=== PATIENT | male | born 1990 | race Caucasian/White ===

== ENCOUNTER 2018-12-26 15:41 | Emergency (ER) | payer SELFPAY ==
--- NOTE | 2018-12-26 16:18 | EDM.PDOC ---
ED HPI GENERAL MEDICAL PROBLEM - General Chief Complaint: Genitourinary Problem Stated Complaint: PAIN IN TESTICLES Time Seen by Provider: 12/26/18 16:16 Source of Information: Reports: Patient History Limitations: Reports: No Limitations - History of Present Illness INITIAL COMMENTS - FREE TEXT/NARRATIVE: HISTORY AND PHYSICAL: History of present illness: Patient is a 28-year-old male presents to the ED with complaint of left testicular pain. He states for the past 2 days he has had a dull ache in the testicle and noticed a small pea-sized nodule. He denies abdominal pain, dysuria , penile discharge, testicular swelling. He also notes having a cough and sinus congestion x 2 weeks. Denies fevers, chills, nausea, vomiting, diarrhea. Review of systems: As per history of present illness and below otherwise all systems reviewed and negative. Past medical history: As per history of present illness and as reviewed below otherwise noncontributory. Surgical history: As per history of present illness and as reviewed below otherwise noncontributory. Social history: No reported history of drug or alcohol abuse. Family history: As per history of present illness and as reviewed below otherwise noncontributory. Physical exam: General: Patient sitting comfortably in no acute distress and nontoxic appearing HEENT: Bilateral maxillary sinus tenderness to palpation. Atraumatic, normocephalic, pupils reactive, negative for conjunctival pallor or scleral icterus, mucous membranes moist, throat clear, neck supple, nontender, trachea midline. No meningeal signs. Lungs: Clear to auscultation, breath sounds equal bilaterally, chest nontender. Heart: S1S2, regular, negative for clicks, rubs, or overt murmur. Abdomen: Soft, nondistended, nontender. Negative for masses or hepatosplenomegaly. Negative for costovertebral tenderness. No rigidity, rebound , guarding. Pelvis: Stable nontender. Genitourinary: There is small pea sized nodule felt within the epididymis of the left testicle. No erythema or swelling. Normal cremasteric reflex. Rectal: Deferred. Extremities: Atraumatic, negative for cords or calf pain. Neurovascular unremarkable. Neuro: Awake, alert, oriented. Cranial nerves II through XII unremarkable. Cerebellum unremarkable. Motor and sensory unremarkable throughout. Exam nonfocal. Notes: Diagnostics: UA, urine gonorrhea/chlamydia, Scrotal US Therapeutics: Rocephin 250mg IM Prescriptions: Doxycycline 100mg BID x 10 days Impression: Acute sinusitis, Epididymal cyst Plan: Take antibiotic as instructed Follow up with urology Return to ED as needed as discussed Definitive disposition and diagnosis as appropriate pending reevaluation and review of above. Left Testicle Pain Score (Numeric/FACES): 6 - Related Data Allergies Allergy/AdvReac Type Severity Reaction Status Date / Time morphine Allergy Hives Verified 12/26/18 16:17 Home Meds: Home Meds Doxycycline Hyclate 100 mg PO BID 10 Days #20 capsule 12/26/18 [Rx] ED ROS GENERAL - Review of Systems Review Of Systems: ROS reveals no pertinent complaints other than HPI. ED EXAM, RENAL/ - Physical Exam Exam: See Below (see dictation) Course - Vital Signs Last Recorded V/S: Last Vital Signs Temp 97.2 F 12/26/18 16:17 Pulse 106 H 12/26/18 16:17 Resp 18 12/26/18 16:17 BP 128/82 12/26/18 16:17 Pulse Ox 96 12/26/18 16:17 - Orders/Labs/Meds Orders: Active Orders 24 hr Category Date Time Status CHLAMYDIA AND GONORRHEA BY [facility] Stat Lab 12/26/18 16:50 Received Labs: Laboratory Tests 12/26/18 Range/Units 16:50 Urine Color YELLOW Urine Appearance CLEAR Urine pH 6.5 (5.0-8.0) Ur Specific [place] 1.010 (1.001-1.035) Urine Protein NEGATIVE (NEGATIVE) mg/dL Urine Glucose (UA) NEGATIVE (NEGATIVE) mg/dL Urine Ketones NEGATIVE (NEGATIVE) mg/dL Urine Occult Blood NEGATIVE (NEGATIVE) Urine Nitrite NEGATIVE (NEGATIVE) Urine Bilirubin NEGATIVE (NEGATIVE) Urine Urobilinogen 0.2 (<2.0) EU/dL Ur Leukocyte Esterase NEGATIVE (NEGATIVE) Meds: Medications Discontinued Medications Generic Name Dose Route Start Last Admin Trade Name Freq PRN Reason Stop Dose Admin Ceftriaxone Sodium 250 mg/ 1 mls @ 1 mls/sec 12/26/18 17:13 Lidocaine HCl IM 12/26/18 17:14 ONETIME ONE Departure - Departure Time of Disposition: 17:23 Disposition: Home, Self-Care 01 Condition: Good Clinical Impression: Epididymal cyst, Acute sinusitis - Discharge Information Prescriptions: Doxycycline Hyclate 100 mg PO BID 10 Days #20 capsule Referrals: PCP,Unknown [Primary Care Provider] - Forms: ED Department Discharge Additional Instructions: The following information is given to patients seen in the emergency department who are being discharged to home. This information is to outline your options for follow-up care. We provide all patients seen in our emergency department with a follow-up referral. The need for follow-up, as well as the timing and circumstances, are variable depending upon the specifics of your emergency department visit. If you don't have a primary care physician on staff, we will provide you with a referral. We always advise you to contact your personal physician following an emergency department visit to inform them of the circumstance of the visit and for follow-up with them and/or the need for any referrals to a consulting specialist. The emergency department will also refer you to a specialist when appropriate. This referral assures that you have the opportunity for follow-up care with a specialist. All of these measure are taken in an effort to provide you with optimal care, which includes your follow-up. Under all circumstances we always encourage you to contact your private physician who remains a resource for coordinating your care. When calling for follow-up care, please make the office aware that this follow-up is from your recent emergency room visit. If for any reason you are refused follow-up, please contact the [facility] Emergency Department at and asked to speak to the emergency department charge nurse. [facility] [address] [place] [address] [facility] Specialty Care - Urology [address] [place] [id number] Take antibiotic as instructed Follow up with urology Return to ED as needed as discussed - My Orders Last 24 Hours: My Active Orders 12/26/18 16:50 CHLAMYDIA AND GONORRHEA BY [facility] Stat - Assessment/Plan Last 24 Hours: My Active Orders 12/26/18 16:50 CHLAMYDIA AND GONORRHEA BY [facility] Stat
[2018-12-26] MEDS ORDERED: cefTRIAXone 250 MG in Lidocaine 1% 1 ML IM ONE (17:13)
--- NOTE | 2018-12-26 17:18 | US ---
Testicular ultrasound: Multiple real-time images were obtained. Comparison: Previous testicular ultrasound is not available. Findings: Testicles have a homogeneous ultrasound appearance. Both arterial and venous blood flow are seen within the testicles. Small epididymal cyst is noted on the left side measuring 8 mm. Minimal hypoechoic area is noted at the base of the penis measuring 6 mm. This is most likely due to small skin lesion. This is otherwise nonspecific. No hydrocele is seen. Measurements: Right testicle: 4.0 x 0.3 x 2.9 cm Left testicle: 3.5 x 2.5 x 2.8 cm Impression: 1. Small epididymal cyst on the left side measuring 8 mm. 2. Small skin lesion at the base of the penis which is nonspecific regarding etiology. 3. Testicular ultrasound is otherwise unremarkable. Diagnostic code #2 MTDD
== END 2018-12-26 18:00 | disposition home or self-care (01) ==
LOC: MW.ED 15:41
DX: N50.3 Cyst of epididymis (principal); J01.90 Acute sinusitis, unspecified; Z88.5 Allergy status to narcotic agent
CPT/HCPCS: 76870; 81003; 87491; 87591; 93976; 96372; 99284; J0696; J2001; 99283